=== PATIENT | female | born 1990 | race Caucasian/White ===

== ENCOUNTER 2021-09-16 15:25 | Emergency (ER) | payer MEDICAID ==
[~2021-09-16] VITALS: Ht 175.3 cm; Wt 97.0 kg
[2021-09-16 15:34] VITALS: BP 168/116
== END 2021-09-16 21:57 | disposition home or self-care (01) ==
LOC: ER 15:25
DX: M25.571 Pain in right ankle and joints of right foot (principal); Z90.49 Acquired absence of other specified parts of digestive tract
CPT/HCPCS: 93971; 99284